=== PATIENT | female | born 1970 | race Caucasian/White ===

== ENCOUNTER 2020-12-16 05:31 | Inpatient (IN) | payer OTHER ==
[2020-12-16] MEDS ORDERED: Scopolamine 1.5 MG Transdermal Patch TOP ONE (05:45)
[2020-12-16] MEDS ORDERED: Acetaminophen 500 MG Tab PO ONE (05:45)
[2020-12-16] MEDS ORDERED: Celecoxib 200 MG Cap PO ONE (05:45)
[2020-12-16] MEDS ORDERED: cefOXitin 2 GM Vial ONE (06:37)
[2020-12-16] MEDS ORDERED: Dextrose 5%-Lactated Ringers 1,000 ML IV SCH (06:45)
[2020-12-16] MEDS ORDERED: Succinylcholine 200 MG/10 ML MDV ONE (07:03)
[2020-12-16] MEDS ORDERED: Lactated Ringers 1,000 ML ONE (07:03)
[2020-12-16] MEDS ORDERED: Dexamethasone 4 MG/ML SDV ONE (07:03)
[2020-12-16] MEDS ORDERED: Rocuronium 50 MG/5 ML Vial ONE (07:03)
[2020-12-16] MEDS ORDERED: Ondansetron 4 MG/2 ML SDV ONE (07:03)
[2020-12-16] MEDS ORDERED: Glycopyrrolate 0.2 MG/ML 5 ML MDV ONE (07:03)
[2020-12-16] MEDS ORDERED: Propofol 200 MG/20 ML SDV ONE (07:03)
[2020-12-16] MEDS ORDERED: Neostigmine Methylsulfate 1 MG/ML 5 ML Syringe ONE (07:03)
[2020-12-16] MEDS ORDERED: fentaNYL 250 MCG/5 ML SDV ONE ×2 (07:03→07:29)
[2020-12-16] MEDS ORDERED: cefOXitin 2 GM in Sodium Chloride 0.9% 50 ML IV ONE (07:15)
[2020-12-16] MEDS ORDERED: Ketamine 50 MG in Sodium Chloride 0.9% 49.5 ML IV SCH (07:30)
[2020-12-16] MEDS ORDERED: Ketamine 500 MG/5 ML MDV IV SCH (07:30)
[2020-12-16] MEDS ORDERED: Magnesium Sulfate 4.8 GM in Sodium Chloride 0.9% 250 ML IV ONE (07:30)
[2020-12-16] MEDS ORDERED: Magnesium Sulfate 3 GM in Sodium Chloride 0.9% 100 ML IV SCH (07:30)
[2020-12-16] MEDS ORDERED: Glucagon,Human Recombinant 1 MG Vial ONE (08:31)
[2020-12-16] MEDS ORDERED: fentaNYL 100 MCG/2 ML SDV IVPUSH ONE (09:29)
[2020-12-16] MEDS ORDERED: hydrOXYzine HCL 100 MG/2 ML SDV IM ONE (09:29)
[2020-12-16] MEDS ORDERED: Cyclobenzaprine 10 MG Tab PO PRN (11:15)
[2020-12-16] MEDS ORDERED: Acetaminophen 500 MG Tab PO PRN (12:00)
[2020-12-16] MEDS ORDERED: Ondansetron 4 MG/2 ML SDV IVPUSH PRN (12:00)
[2020-12-16] MEDS ORDERED: Metoclopramide 10 MG/2 ML SDV IVPUSH PRN (12:00)
[2020-12-16] MEDS ORDERED: HYDROmorphone 0.5 MG/0.5 ML Syringe IVPUSH PRN (12:00)
[2020-12-16] MEDS ORDERED: oxyCODONE 5 MG Tab PO PRN (12:00)
[2020-12-16] MEDS ORDERED: Calcium Gluconate 10% 1 GM/10 ML SDV IVPUSH PRN (12:00)
[2020-12-16] MEDS ORDERED: hydrOXYzine HCL 100 MG/2 ML SDV IM PRN (12:00)
[2020-12-16] MEDS ORDERED: diphenhydrAMINE 50 MG/ML SDV IVPUSH PRN (12:00)
[2020-12-16] MEDS ORDERED: Labetalol 20 MG/4 ML Syringe IVPUSH PRN (12:00)
[2020-12-16] MEDS: Dextrose 5%-Lactated Ringers 1,000 ML IV SCH ×2 (12:36→23:20)
[2020-12-16] MEDS: HYDROmorphone 1 MG/ML Syringe IV PRN ×3 (12:41→23:08)
[2020-12-16] MEDS: cefOXitin 2 GM in Sodium Chloride 0.9% 50 ML IV SCH ×2 (14:24→20:43)
[2020-12-16] MEDS ORDERED: MVI, Adult with Vitamin K 10 ML, Thiamine 200 MG, Zinc/Copper/Manganese/Selenium 1 ML i... IV SCH ×4 (16:00)
[2020-12-16] MEDS ORDERED: Pantoprazole 40 MG Vial IVPUSH SCH (16:00)
[2020-12-16] MEDS: Acetaminophen 500 MG Tab PO SCH ×2 (16:57→23:08)
[2020-12-16] MEDS: Heparin Sodium 5,000 Units/ML Vial SUBCUT SCH (17:01)
[2020-12-16] MEDS: Venlafaxine 37.5 MG Tab PO SCH (20:43)
[2020-12-17] MEDS ORDERED: Iopamidol 612 MG/ML 50 ML SDV PO STA (01:56)
[2020-12-17] MEDS: cefOXitin 2 GM in Sodium Chloride 0.9% 50 ML IV SCH ×3 (01:57→14:05)
[2020-12-17] MEDS: Heparin Sodium 5,000 Units/ML Vial SUBCUT SCH ×2 (05:13→17:36)
[2020-12-17] MEDS ORDERED: hydrOXYzine HCl 25 MG Tab PO PRN (06:58)
[2020-12-17] MEDS ORDERED: Ondansetron 4 MG Tab.DIS PO PRN (06:58)
--- NOTE | 2020-12-17 07:32 | PN ---
DATE OF SERVICE: 12/17/2020 SUBJECTIVE: Larissa is postoperative day 1 following laparoscopic Wesley-en-Y gastric bypass surgery. Upper GI was normal. Oral intake 530, output 3125. HUYEN drain put out 145 mL of a light pink drainage. Pain has been controlled per energy protocol with the addition of 1 mg of Dilaudid IV. She has no questions or concerns today. REVIEW OF SYSTEMS: Remainder of review of systems negative for any pertinent positives and negatives. OBJECTIVE: GENERAL: Larissa Fajardo is a pleasant 50-year-old female. She is alert and orientated. VITAL SIGNS: TPR is 97.2, 77, 16. Blood pressure 159/84. HEENT: Negative. NECK: Supple. HEART: Regular rate and rhythm. LUNGS: Clear. ABDOMEN: Dressings dry and intact. Abdominal binder is on and HUYEN drain intact as above. EXTREMITIES: Without peripheral edema. ASSESSMENT: Laparoscopic Wesley-en-Y gastric bypass surgery, repair of paraesophageal diaphragmatic hernia and Ari-Cut needle liver biopsy. POSTOPERATIVE DIAGNOSES: 1. Morbid obesity. 2. Hepatomegaly. 3. Paraesophageal diaphragmatic hernia. Date of procedure 12/16/2020. Surgeon: Lucien Jiménez MD. PLAN: 1. Decrease IV D5 LR to 100 mL per hour. 2. Step 2 gastric bypass diet without cereal. 3. Dressing off, may shower. 4. Communication order, 3 med cups per hour or 1 every 20 minutes, record at bedside. 5. Atarax 50 mg every 4 hours p.r.n. pain in addition to energy protocol. 6. Continue ambulation and use of incentive spirometer. 7. Encourage small sips of liquids and to sit up in chair when drinking to avoid feeling pressure in chest after drinking. 8. We will evaluate p.r.n. or in a.m. Plan discharge in a.m. if oral intake adequate. Zehra Burns PA-C /[id number]
[2020-12-17] MEDS: Celecoxib 200 MG Cap PO SCH ×2 (08:15→20:34)
[2020-12-17] MEDS: Lisinopril 20 MG Tab PO SCH (08:16)
[2020-12-17] MEDS: Acetaminophen 500 MG Tab PO SCH ×3 (08:16→23:24)
[2020-12-17] MEDS: Metoprolol Succinate 50 MG Tab.ER PO SCH (08:16)
[2020-12-17] MEDS: SCOPOLAMINE PATCH CHECK TOP SCH (08:19)
[2020-12-17] MEDS: Venlafaxine 37.5 MG Tab PO SCH ×2 (08:19→20:34)
--- NOTE | 2020-12-17 11:03 | CR ---
[facility] HISTORY: Postbariatric surgery FINDINGS: Patient swallowed water-soluble contrast. Upright views of the abdomen show no evidence of extravasation or obstruction. There is a surgical drain in the left upper quadrant. IMPRESSION: Status post bariatric surgery No extravasation or obstruction seen
[2020-12-17] MEDS: Dextrose 5%-Lactated Ringers 1,000 ML IV SCH (14:01)
[2020-12-17] MEDS ORDERED: MVI, Adult with Vitamin K 10 ML, Thiamine 200 MG, Zinc/Copper/Manganese/Selenium 1 ML i... IV SCH ×4 (16:00)
[2020-12-17] MEDS ORDERED: Pantoprazole 40 MG Delayed-Release Granules 1 Packet PO SCH (16:00)
[2020-12-18] MEDS: Dextrose 5%-Lactated Ringers 1,000 ML IV SCH (01:31)
[2020-12-18] MEDS: Heparin Sodium 5,000 Units/ML Vial SUBCUT SCH (06:04)
[2020-12-18] MEDS: Metoprolol Succinate 50 MG Tab.ER PO SCH (08:30)
[2020-12-18] MEDS: Lisinopril 20 MG Tab PO SCH (08:30)
[2020-12-18] MEDS: Celecoxib 200 MG Cap PO SCH (08:31)
[2020-12-18] MEDS: Acetaminophen 500 MG Tab PO SCH (08:31)
[2020-12-18] MEDS: SCOPOLAMINE PATCH CHECK TOP SCH (08:32)
[2020-12-18] MEDS: Venlafaxine 37.5 MG Tab PO SCH (08:32)
[2020-12-18] MEDS ORDERED: Cyanocobalamin (Vitamin B12) 1,000 MCG/ML SDV IM ONE (09:00)
[2020-12-18] MEDS ORDERED: Magnesium Hydroxide 400 MG/5 ML Susp 30 ML Cup PO ONE (09:00)
--- NOTE | 2020-12-20 09:11 | OR ---
DATE OF PROCEDURE: 12/16/2020 SURGEON: Lucien Jiménez MD PREOPERATIVE DIAGNOSIS: Morbid obesity. POSTOPERATIVE DIAGNOSES: 1. Morbid obesity. 2. Marked hepatomegaly. 3. Paraesophageal diaphragmatic hernia. 4. Mediastinal lipoma. 5. Gastritis in the area of stomach, status post formation of gastric pouch. OPERATIVE PROCEDURES: Diagnostic laparoscopy: 1. Laparoscopic Wesley-en-Y gastric bypass with long limb gastroenterostomy (09599). 2. Ari-Cut needle liver biopsy (90784). 3. Repair of paraesophageal diaphragmatic hernia (78971). 4. Excision of mediastinal lipoma (72381). 5. Partial gastrectomy (67322). ANESTHESIA: General. ASSISTANTS: Zehra Burns PA-C. INDICATIONS FOR PROCEDURE: This is a 50-year-old female presenting with longstanding morbid obesity and increasingly significant comorbidities. After preoperative evaluation and discussion, she wished to proceed with gastric bypass procedure. Potential risks of the procedure including bleeding, infection, leaks from various GI tract closures, problems with bowel obstruction over time as well as possibility of cardiopulmonary, septic, or hemorrhagic complications leading to were discussed, and the patient wishes to proceed. DETAILS OF PROCEDURE: The patient was taken to the operating room, and after general endotracheal anesthesia was induced, she was converted to a lithotomy position, and the abdomen prepped and draped. 15 cm inferior and 5 cm left of xiphoid process, a transverse incision was made, and the peritoneal cavity entered under direct vision with an Optiview trocar inflated to 15 mmHg pressure with CO2. Laparoscope was then reinserted. No underlying trocar insertion site injuries were seen. Following this, 5 additional trocars were placed across her mid abdomen, and bilateral transversus abdominis plane blocks were placed. The liver was noted to be markedly fatty infiltrated. Ari-Cut needle biopsies were obtained from left lobe of the liver. Minimal bleeding from the biopsy sites was controlled with electrocautery. The omentum was then divided in the midline up to the level of transverse colon. This allowed identification of the small bowel to the ligament of Treitz. Small bowel was then traced out 150 cm distal to that point, where it was divided transversely with a ARCHIE stapler. Small bowel was then traced out an additional 175 cm where the [id number] enteroenterostomy was accomplished with internal firing of Endo-ARCHIE 60 mm stapler. Common opening was then closed transversely with the same stapler, and the angles anastomosed, and mesenteric defect approximated with some 0 Ethibond sutures reinforced with fibrin sealant. The divided end of the Wesley limb was from the mesentery for a few centimeters, which allowed an antecolic positioning of the Wesley limb up to the level of the gastroesophageal junction without tension. The liver was then retracted anteriorly. The patient was noted to have a moderate-sized paraesophageal diaphragmatic hernia with prolapse of perigastric fat and the gastric fundus in a plane anterior to the course of the esophagus. The hernia was reduced, and peritoneum overlying incised and reflected downwards. During the course of the dissection of the crura, mediastinal lipoma was encountered, which was excised to facilitate more adequate repair of the crural defect, which was accomplished with some 0 Ethibond sutures reinforced with PTFE pledgets. The gastrointestinal catheter was then inflated to 15 mL and pulled up snugly against the EG junction. Gastric wall over the apex balloon was then marked with electrocautery and balloon catheter deflated and pulled up into the esophagus. The lesser omental tissue adjacent to the gastric cardia was then incised allowing pouch formation to be initiated with a transverse firing of ARCHIE stapler at the level of cauterized zora in the gastric cardia and completed with additional firings of ARCHIE stapler up to and through the angle of His. Upon completion of the pouch, both staple lines were noted to be intact. Initially, the anvil of a 25 mm EEA stapler was passed after being attached to the Arcadia sump type tube and pulled down into an opening near the gastric pouch after being placed orally per Anesthesia. The divided end of the Wesley limb was then opened, and it became evident that the Wesley limb would not accommodate a 25 mm EEA stapler. The anvil was then retrieved and a 21 mm EEA anvil attached to the Arcadia sump tube was then brought down and taken out through the same opening in the gastric pouch. The fit at that level appeared to be snug, i.e., did not appear to be overly large diameter of the opening of the gastric pouch. The main body of the 21 mm EEA stapler was then passed through the lumen of the small bowel, brought up the anvil, and united with it thus creating the gastrojejunostomy. Upon removal of the stapler, double donuts of mucosa were noted within it, and the small bowel was closed off with a vascular staple line. Of note, the divided portion of the stomach away from the gastric pouch was noted to be ischemic at 1 corner, this was excised to minimize chances of that leaking due to new ischemic changes. Gastric pouch and gastrectomy . The gastrojejunostomy was reinforced with 3-0 Vicryl seromuscular stitch along with fibrin sealant. Leak test was accomplished with injection of 120 mL of air in the gastric pouch while it was submerged with a cefoxitin-containing saline solution. No leaks were identified. A single Pedrito-Mcclure drain was then taken out through the left lateral trocar site and positioned adjacent to the gastric cardia, and trocars were then removed. The peritoneal cavity deflated. Incisions were closed with 4-0 Vicryl skin stitch, which was used to fix the drain, and the patient was taken to the recovery room in satisfactory condition. Physician pest controller assistant, Zehra Burns, played an essential role in assisting in this case, helping to position the patient, retract structures as needed, as well as suturing and cutting sutures when indicated. Her presence improved patient safety and decreased the operative time. Lucien Jiménez MD /[id number]
--- NOTE | 2020-12-20 12:43 | DISCH ---
FINAL DIAGNOSES: 1. Morbid obesity. 2. Marked hepatomegaly. 3. Diaphragmatic hernia associated with mediastinal lipoma. 4. Devascularized area of stomach, status post formation of gastric pouch. 5. History of hypertension. 6. History of depression. OPERATIVE PROCEDURES: Done on 12/16/2020, diagnostic laparoscopy with: 1. Laparoscopic Wesley-en-Y gastric bypass with long limb gastroenterostomy. 2. Ari-Cut needle liver biopsy. 3. Repair of the diaphragmatic hernia. 4. Excision of mediastinal lipoma. 5. Partial gastrectomy. SUMMARY: This is a 50-year-old female presenting with longstanding morbid obesity and increasingly significant comorbidities. After preoperative evaluation and discussion, she wished to proceed with a gastric bypass procedure. This was done on the date of admission. Her small bowel was somewhat friable, and we did have to use a 21 mm EEA stapler as opposed to usual 25, which may make her slightly high risk for subsequent stricture formation, but otherwise, the patient has done well postoperatively. The patient is tolerating a step-2 diet without difficulty at this point and only require any Celebrex and Tylenol for pain, i.e., no narcotics. She will be sent home on her usual medications plus Tylenol 1 g q.6 hours p.r.n., and we will send home with 2 doses of milk of magnesia. She will be instructed to hold her vitamin supplements until after her first appointment, which will be with Zehra Burns at [facility] on 12/27/2020. /[id number]
== END 2020-12-18 10:50 | disposition home or self-care (01) | DRG 621 ==
LOC: JP.SDS 05:31 → EDSTATUS 08:45 → JP.MS 09:20
PROVIDERS: ADMIT Surgery; ATTEND Surgery
PROC: 0D164ZA Bypass Stomach to Jejunum, Percutaneous Endoscopic Approach (ICD-10-PCS; principal; 2020-12-16)
PROC: 0FB24ZX Excision of Left Lobe Liver, Percutaneous Endoscopic Approach, Diagnostic (ICD-10-PCS; 2020-12-16)
PROC: 0BQT4ZZ Repair Diaphragm, Percutaneous Endoscopic Approach (ICD-10-PCS; 2020-12-16)
PROC: 0DB64ZZ Excision of Stomach, Percutaneous Endoscopic Approach (ICD-10-PCS; 2020-12-16)
PROC: 0JB63ZZ Excision of Chest Subcutaneous Tissue and Fascia, Percutaneous Approach (ICD-10-PCS; 2020-12-16)
DX: E66.01 Morbid (severe) obesity due to excess calories (principal); R16.0 Hepatomegaly, not elsewhere classified; K44.9 Diaphragmatic hernia without obstruction or gangrene; I10 Essential (primary) hypertension; F32.9 Major depressive disorder, single episode, unspecified; Z86.16 Personal history of COVID-19; Z20.822 Contact with and (suspected) exposure to COVID-19; K29.70 Gastritis, unspecified, without bleeding; Z98.890 Other specified postprocedural states; Z90.49 Acquired absence of other specified parts of digestive tract; Z79.899 Other long term (current) drug therapy; Z68.41 Body mass index [BMI] 40.0-44.9, adult
CPT/HCPCS: 36415; 74240; 74240-26; 81025; 82962; 86850; 86900; 86901; 93005; A9270-GY; C9113; J0171; J0330; J0694; J1100; J1170; J1610; J1644; J2405; J2704; J2710; J2795; J3010; J3410; J3411; J3420; J3475; J3490; J7050; J7120; J7121; Q9967